=== PATIENT | male | born 1945 | race Asian ===

== ENCOUNTER 2016-07-02 10:27 | Outpatient (CLI) | payer OTHER ==
[~2016-07-02 10:27] MED LIST: ACID REDUCER150 MG PO; ALPHAGAN P0.1 % OP; ASPIRIN/ENTERIC81 MG PO; CARDURA4 MG PO; CEPHALEXIN500 MG PO; CIALIS5 MG PO; CLOP75TA2 PO; CYCL10TA35 PO; FINASTERIDE5 MG PO; FUROSEMIDE40 MG PO; GLIM4TAB PO; LIPITOR40 MG PO; LISI20TA31 PO; LORTAB 5-325 MG1 TAB PO; METFORMIN ER1000 MG PO; METHYLPRED4 M1 PO; METO50TA63 PO; NITR0.2D21 TD; NITR0.4S2 SL; RANEXA PO; RANO500T PO; TAMS0.4C PO
[2016-07-02 11:27] LABS: PLATELET COUNT 402 K/uL (142-355)
[2016-07-02 11:59] LABS: POTASSIUM 4.8 mmol/L (3.6-5.2)
== END 2016-07-02 19:44 | disposition home or self-care (01) ==
LOC: LABW 10:27
PROVIDERS: Nurse Practitioner
DX: N40.0 Benign prostatic hyperplasia without lower urinary tract symptoms (principal); F41.8 Other specified anxiety disorders; K21.9 Gastro-esophageal reflux disease without esophagitis; E78.00 Pure hypercholesterolemia, unspecified; Z79.01 Long term (current) use of anticoagulants; Z79.899 Other long term (current) drug therapy; Z51.81 Encounter for therapeutic drug level monitoring; E55.9 Vitamin D deficiency, unspecified; Z12.5 Encounter for screening for malignant neoplasm of prostate
CPT/HCPCS: 36415; 80053; 80061; 82043; 82570; 83036; 85027; 85610; G0103

== ENCOUNTER 2016-11-13 08:27 | Outpatient (CLI) | payer OTHER | END 2016-11-13 19:04 | disposition home or self-care (01) | LOC: CT 08:27 | DX: M54.2 Cervicalgia (principal); R51 Headache; M54.10 Radiculopathy, site unspecified; I10 Essential (primary) hypertension ==

== ENCOUNTER 2016-11-18 06:55 | Outpatient (CLI) | payer OTHER ==
[2016-11-18 07:54] LABS: PLATELET COUNT 342 K/uL (142-355)
== END 2016-11-18 19:09 | disposition home or self-care (01) ==
LOC: LABW 06:55
PROVIDERS: Family Medicine
DX: I10 Essential (primary) hypertension (principal); K21.9 Gastro-esophageal reflux disease without esophagitis; E78.00 Pure hypercholesterolemia, unspecified; N40.0 Benign prostatic hyperplasia without lower urinary tract symptoms; G62.89 Other specified polyneuropathies; E55.9 Vitamin D deficiency, unspecified; R73.09 Other abnormal glucose
CPT/HCPCS: 36415; 80053; 80061; 81000; 82043; 82306; 82570; 83036; 83735; 84153; 84439; 84443; 84550; 85027

== ENCOUNTER 2016-11-25 08:47 | Outpatient (CLI) | payer OTHER | END 2016-11-25 09:50 | disposition home or self-care (01) | LOC: LABW 08:47 | DX: H05.89 Other disorders of orbit (principal) | CPT/HCPCS: 36415; 82565; 84520 ==

== ENCOUNTER 2017-08-28 20:21 | Emergency (ER) | payer OTHER ==
[~2017-08-28] VITALS: Ht 170.2 cm; Wt 115.2 kg
[2017-08-28 21:12] LABS: PLATELET COUNT 339 K/uL (142-355)
[2017-08-28 21:17] LABS: POTASSIUM 3.5 mmol/L (3.6-5.2)
[2017-08-28] MEDS ORDERED: MONT10TA PO (21:24)
[2017-08-28] MEDS ORDERED: FURO40TA93 PO (21:25)
[2017-08-28] MEDS ORDERED: ALLO100T22 PO (21:25)
[2017-08-28] MEDS ORDERED: NEURONTIN 100M100 MG OR (21:25)
[2017-08-28 22:48] VITALS: BP 162/66; TEMP 98.7
== END 2017-08-28 22:53 | disposition home or self-care (01) ==
LOC: ED 20:21
PROVIDERS: Specialist
DX: R31.9 Hematuria, unspecified (principal); N40.0 Benign prostatic hyperplasia without lower urinary tract symptoms
CPT/HCPCS: 36415; 80048; 81000; 85027; 99283

== ENCOUNTER 2020-03-03 10:28 | Outpatient (CLI) | payer OTHER ==
[~2020-03-03 10:28] MED LIST changes: +ALLO100T22 PO; +FURO40TA93 PO; +MONT10TA PO; +NEURONTIN 100M100 MG OR
== END 2020-03-04 03:37 | disposition home or self-care (01) ==
LOC: CT 10:28
DX: M25.551 Pain in right hip (principal); T84.030A Mechanical loosening of internal right hip prosthetic joint, initial encounter; M70.61 Trochanteric bursitis, right hip; Z96.641 Presence of right artificial hip joint

== ENCOUNTER 2021-01-29 11:00 | Outpatient (CLI) | payer OTHER | END 2021-01-29 21:15 | disposition home or self-care (01) | LOC: US 11:00 | PROVIDERS: ATTEND Internal Medicine | DX: I25.10 Atherosclerotic heart disease of native coronary artery without angina pectoris (principal) ==

== ENCOUNTER 2021-02-13 11:01 | Emergency (ER) | payer OTHER ==
[~2021-02-13] VITALS: Ht 170.2 cm; Wt 114.3 kg
[2021-02-13 11:08] VITALS: TEMP 97.6
[2021-02-13 13:44] VITALS: BP 142/86
== END 2021-02-13 13:44 | disposition home or self-care (01) ==
LOC: ED 11:01
DX: S40.012A Contusion of left shoulder, initial encounter (principal); M19.012 Primary osteoarthritis, left shoulder; W18.09XA Striking against other object with subsequent fall, initial encounter; Y92.89 Other specified places as the place of occurrence of the external cause
CPT/HCPCS: 99283

== ENCOUNTER 2021-04-21 16:28 | Outpatient (CLI) | payer OTHER | END 2021-04-21 19:02 | disposition home or self-care (01) | LOC: LABW 16:28 | PROVIDERS: ATTEND Internal Medicine | DX: R19.7 Diarrhea, unspecified (principal) | CPT/HCPCS: 83630; 87015; 87045; 87324; 87328; 87329; 87449; 87899 ==

== ENCOUNTER 2021-09-24 10:22 | Outpatient (CLI) | payer OTHER | END 2021-09-24 20:47 | disposition home or self-care (01) | LOC: RAD 10:22 | PROVIDERS: ATTEND Internal Medicine | DX: M25.511 Pain in right shoulder (principal); M25.512 Pain in left shoulder; M25.711 Osteophyte, right shoulder; M25.712 Osteophyte, left shoulder; M19.90 Unspecified osteoarthritis, unspecified site ==

== ENCOUNTER 2022-05-24 22:30 | Emergency (ER) | payer OTHER ==
[~2022-05-24] VITALS: Ht 170.2 cm; Wt 114.3 kg
[2022-05-24 23:31] LABS: PLATELET COUNT 437 K/uL (142-355)
[2022-05-24 23:35] LABS: POTASSIUM 3.8 mmol/L (3.6-5.2)
[2022-05-24 23:44] LABS: PARTIAL THROMBOPLASTIN TIME 27.9 SECONDS (24.5-33.6)
[2022-05-25 03:25] VITALS: BP 114/58
== END 2022-05-25 03:25 | disposition short-term general hospital (02) ==
LOC: ED 22:30
PROVIDERS: Emergency Medicine
DX: I21.4 Non-ST elevation (NSTEMI) myocardial infarction (principal); I50.9 Heart failure, unspecified; I10 Essential (primary) hypertension; I25.10 Atherosclerotic heart disease of native coronary artery without angina pectoris; Z11.52 Encounter for screening for COVID-19
CPT/HCPCS: 36415; 36600; 80053; 81002; 82805; 83880; 84443; 84484; 85008; 85027; 85379; 85610; 85730; 87040; 87635; 93005; 94664; 96365; 96366; 96375; 99284; J1644; J1940; J1956; U0003

== ENCOUNTER 2022-11-21 15:35 | Outpatient (CLI) | payer OTHER ==
[2022-11-21 16:03] LABS: PLATELET COUNT 206 K/uL (142-355)
== END 2022-11-21 19:03 | disposition home or self-care (01) ==
LOC: CT 15:35
PROVIDERS: ATTEND Internal Medicine
DX: D64.89 Other specified anemias (principal); R53.1 Weakness; R42 Dizziness and giddiness
CPT/HCPCS: 36415; 80053; 85027